=== PATIENT | female | born 1970 | race African-American/Black ===

== ENCOUNTER 2016-10-02 18:00 | Emergency (ER) | payer OTHER ==
[~2016-10-02] VITALS: Ht 160 cm; Wt 87.0 kg
[~2016-10-02 18:00] MED LIST: ABILIFY15 MG PO; AMBIEN10 M1 PO; AMOXICILLIN500 M1 PO; ATARAX,VISTARIL25 MG PO; ATARAX,VISTARIL50 MG PO; BUSPAR10 MG PO; CATAPRES0.3 MG PO; CIPRO500 MG PO; CLONIDINE HCL0.1 MG PO; CLONIDINE HCL0.3 MG; CYCLOBENZAPRINE5 MG PO; Catapres PO; Cipro PO; DEBLITANE0.35 MG PO; EFFEXOR XR150 MG; EFFEXOR25 MG PO; EFFEXOR75 MG PO; ENDOCET 5-3251 EACH PO; Ecotrin PO; FEXOFENADINE H180 MG PO; HYOSCYAMINE0.375 MG PO; Habitrol,Nicoderm CQ TD; IBUPROFEN800 MG PO; INDOCIN25 MG PO; INVEGA1.5 MG PO; LATUDA40 MG; LATUDA40 MG PO; LISINOPRIL20 MG PO; LISINOPRIL40 MG PO; MACROBID100 MG PO; MOBIC15 MG PO; MOTRIN600 MG PO; MOTRIN800 MG PO; NOHOMEMEDS; NORCO 5/3251 TABLET PO; OMEPRAZOLE40 M1; OMEPRAZOLE40 M1 PO; OMEPRAZOLE40 MG PO; OXYCODONE-APAP1 EAC6 PO; PEPCID40 MG PO; PERCOCET 5/31 TABLET PO; PERCOCET 7.51 TABLET PO; PREDNISONE10 MG PO; PREDNISONE20 MG PO; PRILOSEC40 MG PO; PROTONIX40 MG PO; RANITIDINE HCL300 M1 PO; RANITIDINE HCL300 MG PO; RESTORIL30 MG PO; SOOTHING CARE28 GM TP; TEMAZEPAM30 MG PO; TOPAMAX100 MG; TOPAMAX50 MG PO; TOPIRAMATE100 MG PO; TRAZODONE HCL50 MG PO; TYLENOL REGULA325 MG PO; ULTRAM50 MG PO; VENLAFAXINE HC150 M1 PO; ZESTRIL,PRINIVI20 MG PO; Zestril,Prinivil PO
[2016-10-02 19:37] LABS: INFLUENZA A VIRAL ANTIGEN NEGATIVE; INFLUENZA B VIRAL ANTIGEN POSITIVE
[2016-10-02] MEDS ORDERED: AUGMENTIN875 MG PO (20:18)
[2016-10-02] MEDS ORDERED: MUCINEX D ER T1 EAC1 PO (20:19)
[2016-10-02 20:35] VITALS: BP 159/99
== END 2016-10-02 20:36 | disposition home or self-care (01) ==
LOC: EME 18:00
PROVIDERS: Physician Assistant
DX: J10.1 Influenza due to other identified influenza virus with other respiratory manifestations (principal); J32.9 Chronic sinusitis, unspecified; F17.200 Nicotine dependence, unspecified, uncomplicated
CPT/HCPCS: 87502; 99281; 99284

== ENCOUNTER 2016-12-27 17:09 | Observation (INO) | payer OTHER ==
[~2016-12-27] VITALS: Ht 162.6 cm; Wt 86.5 kg
[~2016-12-27 17:09] MED LIST changes: +AUGMENTIN875 MG PO; +MUCINEX D ER T1 EAC1 PO
[2016-12-27 18:33] LABS: MCH 30.1 PG (29.0-34.0); MCV 91.1 FL (83-99); MEAN PLAT.VOLUME 8.7 uM^3 (9.5-12.4); PLATELET COUNT 247 K/uL (156-360); RBC DIS.WIDTH-CV 12.7 % (11.8-14.6); RBC DIS.WIDTH-SD 42.3 % (39-53); RED BLOOD COUNT 4.72 M/uL (3.80-5.20); WHITE BLOOD COUNT 8.4 K/uL (4.1-10.2)
[2016-12-27 18:42] LABS: CHLORIDE 104 mEq/L (99-109); POTASSIUM 3.8 mEq/L (3.7-5.4); SODIUM 140 mEq/L (136-147)
[2016-12-27 18:44] LABS: GLUCOSE 82 mg/dL (70-99)
[2016-12-27 18:46] LABS: ANION GAP 10 MEQ/L (2-14); D-DIMER ELISA 0.64 mg/L FEU (< 0.57)
[2016-12-27 18:48] LABS: GFR ESTIMATE (CALCULATED) > 59 mL/min/
[2016-12-27 18:49] LABS: UREA NITROGEN (BUN) 9 mg/dL (9-23)
[2016-12-27 18:57] LABS: TROP-I INTERPRETATION NEGATIVE; TROPONIN-I < 0.01 ng/mL (0.0-0.30)
[2016-12-27] MEDS ORDERED: PERCOCET 10/1 TABLET PO (22:16)
[2016-12-27] MEDS ORDERED: PRILOSEC20 MG PO (22:17)
[2016-12-27] MEDS ORDERED: MORPHINE SULFAT15 M1 PO (22:17)
[2016-12-28 02:14] LABS: TOTAL BILIRUBIN 0.4 mg/dL (0.0-1.0)
[2016-12-28 02:15] LABS: ALKALINE PHOSPHATASE 104 IU/L (3-129)
[2016-12-28 02:16] LABS: TROP-I INTERPRETATION NEGATIVE; TROPONIN-I < 0.01 ng/mL (0.0-0.30)
[2016-12-28 02:18] LABS: DIRECT BILIRUBIN 0.2 mg/dL (0.0-0.3)
[2016-12-28 02:19] LABS: LIPASE 17 U/L (1.0-51.0)
[2016-12-28 02:44] VITALS: BP 172/83
[2016-12-28 07:07] VITALS: BP 156/93
[2016-12-28 09:39] LABS: TROP-I INTERPRETATION NEGATIVE; TROPONIN-I < 0.01 ng/mL (0.0-0.30)
[2016-12-28] MEDS ORDERED: VENTOLIN HFA18 GM IH (09:55)
[2016-12-28] MEDS ORDERED: AMOX TR-K CLV1 EAC4 PO (09:55)
[2016-12-28] MEDS ORDERED: ASPIR-LOW81 MG PO (09:55)
[2016-12-28] MEDS ORDERED: PRAVACHOL40 MG PO (09:56)
== END 2016-12-28 11:01 | disposition home or self-care (01) ==
LOC: EME 17:09 → EDOF 12-28 00:31 → 5WEST 12-28 02:08
PROVIDERS: Hospitalist
DX: J32.9 Chronic sinusitis, unspecified (principal); J40 Bronchitis, not specified as acute or chronic; J45.909 Unspecified asthma, uncomplicated; R07.81 Pleurodynia; E11.9 Type 2 diabetes mellitus without complications
CPT/HCPCS: 71020; 71275; 80048; 80076; 80306 90; 83690; 84484; 85027; 85379; 93005; 99281; 99285; G0378; J2270

== ENCOUNTER 2017-03-04 13:19 | Emergency (ER) | payer OTHER ==
[~2017-03-04] VITALS: Ht 162.6 cm; Wt 84.0 kg
[~2017-03-04 13:19] MED LIST changes: +AMOX TR-K CLV1 EAC4 PO; +ASPIR-LOW81 MG PO; +MORPHINE SULFAT15 M1 PO; +PERCOCET 10/1 TABLET PO; +PRAVACHOL40 MG PO; +PRILOSEC20 MG PO; +VENTOLIN HFA18 GM IH
[2017-03-04 14:06] VITALS: BP 132/92
== END 2017-03-04 16:34 | disposition home or self-care (01) ==
LOC: EME 13:19
DX: M25.561 Pain in right knee (principal)
CPT/HCPCS: 99281; 99283

== ENCOUNTER 2017-04-10 12:02 | Emergency (ER) | payer OTHER ==
[~2017-04-10] VITALS: Ht 162.6 cm; Wt 101.2 kg
[2017-04-10 15:35] VITALS: BP 119/78
== END 2017-04-10 15:38 | disposition home or self-care (01) ==
LOC: EME 12:02
DX: Z47.1 Aftercare following joint replacement surgery (principal); Z96.651 Presence of right artificial knee joint; I10 Essential (primary) hypertension; Z85.41 Personal history of malignant neoplasm of cervix uteri; F17.200 Nicotine dependence, unspecified, uncomplicated
CPT/HCPCS: 99281; 99285

== ENCOUNTER 2017-05-28 02:32 | Emergency (ER) | payer OTHER ==
[~2017-05-28] VITALS: Ht 160 cm; Wt 101.2 kg
[2017-05-28 04:24] VITALS: BP 129/86
== END 2017-05-28 04:25 | disposition home or self-care (01) ==
LOC: EME 02:32 → EXP 02:32
DX: M25.561 Pain in right knee (principal); G89.29 Other chronic pain; I10 Essential (primary) hypertension; E11.9 Type 2 diabetes mellitus without complications; K21.9 Gastro-esophageal reflux disease without esophagitis; F41.9 Anxiety disorder, unspecified; F32.9 Major depressive disorder, single episode, unspecified; F31.9 Bipolar disorder, unspecified; I25.2 Old myocardial infarction; Z85.41 Personal history of malignant neoplasm of cervix uteri; F17.200 Nicotine dependence, unspecified, uncomplicated
CPT/HCPCS: 99281; 99284

== ENCOUNTER 2017-07-16 19:31 | Emergency (ER) | payer OTHER ==
[~2017-07-16] VITALS: Ht 162.6 cm; Wt 70.0 kg
[2017-07-16] MEDS ORDERED: PERCOCET 5/31 TABLET PO (20:34)
[2017-07-16 20:45] VITALS: BP 128/102
[2017-07-16] MEDS ORDERED: ZOFRAN4 MG PO (21:27)
[2017-07-17] MEDS ORDERED: BENTYL20 MG PO (13:23)
== END 2017-07-16 21:27 | disposition home or self-care (01) ==
LOC: EME 19:31
DX: G89.18 Other acute postprocedural pain (principal); M25.561 Pain in right knee; R51 Headache; R11.2 Nausea with vomiting, unspecified; Z98.890 Other specified postprocedural states; Z96.651 Presence of right artificial knee joint; I10 Essential (primary) hypertension; Z79.82 Long term (current) use of aspirin; Z79.891 Long term (current) use of opiate analgesic; Z85.41 Personal history of malignant neoplasm of cervix uteri; F17.200 Nicotine dependence, unspecified, uncomplicated
CPT/HCPCS: 80053; 83690; 84702; 85027; 99281; 99284

== ENCOUNTER 2017-07-16 21:43 | Emergency (ER) | payer OTHER ==
[~2017-07-16] VITALS: Ht 162.6 cm; Wt 70.0 kg
[~2017-07-16 21:43] MED LIST changes: +ZOFRAN4 MG PO
[2017-07-16 23:24] LABS: HEMATOCRIT 30.4 % (36.0-46.0); HEMOGLOBIN 9.7 G/DL (11.9-15.5); MCH 25.5 PG (29.0-34.0); MCHC 31.9 G/DL (30.0-36.0); PLATELET COUNT 316 K/uL (156-360); RBC DIS.WIDTH-CV 13.4 % (11.8-14.6); RBC DIS.WIDTH-SD 39.3 % (39-53); WHITE BLOOD COUNT 12.4 K/uL (4.1-10.2)
[2017-07-16 23:39] LABS: ALBUMIN 4.3 g/dL (3.2-4.8)
[2017-07-16 23:40] LABS: CHLORIDE 107 mEq/L (99-109); POTASSIUM 3.6 mEq/L (3.7-5.4); SODIUM 141 mEq/L (136-147)
[2017-07-16 23:42] LABS: GLUCOSE 157 mg/dL (70-99); TOTAL PROTEIN 7.9 g/dL (6.4-8.3)
[2017-07-16 23:44] LABS: TOTAL BILIRUBIN 0.3 mg/dL (0.0-1.0)
[2017-07-16 23:45] LABS: ALKALINE PHOSPHATASE 88 IU/L (3-129)
[2017-07-16 23:46] LABS: CREATININE 0.7 mg/dL (0.6-1.3); GFR ESTIMATE (CALCULATED) > 59 mL/min/
[2017-07-16 23:47] LABS: AST (GOT) 15 IU/L (2-34); UREA NITROGEN (BUN) 12 mg/dL (9-23)
[2017-07-16 23:48] LABS: ALT (GPT) 16 IU/L (3-49)
[2017-07-16 23:49] LABS: LIPASE 4 U/L (1.0-51.0)
[2017-07-16 23:56] LABS: QUANTITATIVE HCG < 4.0 MIU/ML
[2017-07-17 01:59] VITALS: BP 138/78
[2017-07-17] MEDS ORDERED: BENTYL20 MG PO (13:23)
== END 2017-07-17 02:17 | disposition home or self-care (01) ==
LOC: EME 21:43 → EXP 21:43
PROVIDERS: Emergency Medicine
DX: R11.2 Nausea with vomiting, unspecified (principal); R19.7 Diarrhea, unspecified; E86.0 Dehydration; D64.9 Anemia, unspecified; Z85.41 Personal history of malignant neoplasm of cervix uteri; Z90.49 Acquired absence of other specified parts of digestive tract; I10 Essential (primary) hypertension; Z98.890 Other specified postprocedural states; Z96.651 Presence of right artificial knee joint; Z79.82 Long term (current) use of aspirin; F17.200 Nicotine dependence, unspecified, uncomplicated
CPT/HCPCS: 74176; 80053; 83690; 84702; 85027; 99281; 99285; J2270; J2405; J7030

== ENCOUNTER 2017-07-17 10:56 | Emergency (ER) | payer OTHER ==
[~2017-07-17] VITALS: Ht 160 cm; Wt 76.2 kg
[2017-07-17 12:03] LABS: BASOPHIL (%) 0.1 % (0-1); EOSINOPHIL (%) 0 % (0-5); HEMATOCRIT 27.5 % (36.0-46.0); HEMOGLOBIN 8.6 G/DL (11.9-15.5); IMMATURE GRANULOCYTE (%) 0.8 % (0.0-0.7); LYMPHOCYTE (%) 9.6 % (15-42); LYMPHOCYTE COUNT 1.4 K/uL (1.0-2.8); MCH 25.3 PG (29.0-34.0); MCHC 31.3 G/DL (30.0-36.0); MCV 80.9 FL (83-99); MONOCYTE (%) 4.3 % (3-12); MONOCYTE COUNT 0.6 K/uL (0-0.8); NEUTROPHIL (%) 85.2 % (45-76); NEUTROPHIL COUNT 12.2 K/uL (1.8-6.4); PLATELET COUNT 284 K/uL (156-360); RBC DIS.WIDTH-CV 13.7 % (11.8-14.6); RBC DIS.WIDTH-SD 40.1 % (39-53); WHITE BLOOD COUNT 14.3 K/uL (4.1-10.2)
[2017-07-17 12:08] LABS: ALBUMIN 3.8 g/dL (3.2-4.8); CHLORIDE 109 mEq/L (99-109); POTASSIUM 3.6 mEq/L (3.7-5.4); SODIUM 139 mEq/L (136-147)
[2017-07-17 12:10] LABS: GLUCOSE 131 mg/dL (70-99)
[2017-07-17 12:14] LABS: ALKALINE PHOSPHATASE 77 IU/L (3-129); CREATININE 0.7 mg/dL (0.6-1.3); GFR ESTIMATE (CALCULATED) > 59 mL/min/
[2017-07-17 12:15] LABS: UREA NITROGEN (BUN) 10 mg/dL (9-23)
[2017-07-17 12:16] LABS: AST (GOT) 12 IU/L (2-34)
[2017-07-17 12:17] LABS: ALT (GPT) 13 IU/L (3-49); LIPASE 3 U/L (1.0-51.0)
[2017-07-17 12:18] LABS: TOTAL BILIRUBIN 0.2 mg/dL (0.0-1.0)
[2017-07-17] MEDS ORDERED: BENTYL20 MG PO (13:23)
[2017-07-17 14:10] VITALS: BP 103/59
== END 2017-07-17 14:10 | disposition home or self-care (01) ==
LOC: EME 10:56
PROVIDERS: Emergency Medicine
DX: R10.9 Unspecified abdominal pain (principal); R11.2 Nausea with vomiting, unspecified; D64.9 Anemia, unspecified; K21.9 Gastro-esophageal reflux disease without esophagitis; I10 Essential (primary) hypertension; E11.9 Type 2 diabetes mellitus without complications; I25.2 Old myocardial infarction; F41.9 Anxiety disorder, unspecified; F32.9 Major depressive disorder, single episode, unspecified; F31.9 Bipolar disorder, unspecified; F17.200 Nicotine dependence, unspecified, uncomplicated; Z90.49 Acquired absence of other specified parts of digestive tract; Z85.41 Personal history of malignant neoplasm of cervix uteri
CPT/HCPCS: 80053; 83690; 85025; 99281; 99283; J1885; J2270; J2405; J7030

== ENCOUNTER 2017-07-26 02:08 | Emergency (ER) | payer OTHER ==
[~2017-07-26] VITALS: Ht 162.6 cm; Wt 77.2 kg
[~2017-07-26 02:08] MED LIST changes: +BENTYL20 MG PO
[2017-07-26 03:19] VITALS: BP 109/68
== END 2017-07-26 03:25 | disposition home or self-care (01) ==
LOC: EME → EDBD 02:08 → EME 03:25
DX: M25.561 Pain in right knee (principal); F11.23 Opioid dependence with withdrawal; K21.9 Gastro-esophageal reflux disease without esophagitis; I10 Essential (primary) hypertension; E11.9 Type 2 diabetes mellitus without complications; I25.2 Old myocardial infarction; F41.9 Anxiety disorder, unspecified; F32.9 Major depressive disorder, single episode, unspecified; F17.200 Nicotine dependence, unspecified, uncomplicated; Z96.651 Presence of right artificial knee joint; Z85.41 Personal history of malignant neoplasm of cervix uteri
CPT/HCPCS: 99281; 99284; J2270

== ENCOUNTER 2017-08-15 12:39 | Emergency (ER) | payer OTHER ==
[~2017-08-15] VITALS: Ht 162.6 cm; Wt 73.2 kg
[2017-08-15] MEDS ORDERED: DIAZEPAM5 MG PO (13:48)
[2017-08-15] MEDS ORDERED: MORPHINE SULFAT15 M1 PO (13:49)
[2017-08-15] MEDS ORDERED: [UNRECOGNIZED DRUG - OTHER] BOTH NARES (13:51)
[2017-08-15] MEDS ORDERED: EYE ITCH RELIEF5 ML BOTH EYES (13:52)
[2017-08-15 15:42] VITALS: BP 111/98
== END 2017-08-15 15:46 | disposition home or self-care (01) ==
LOC: EME 12:39
DX: R22.41 Localized swelling, mass and lump, right lower limb (principal); M25.561 Pain in right knee; Z96.651 Presence of right artificial knee joint; E11.9 Type 2 diabetes mellitus without complications; I10 Essential (primary) hypertension; F17.200 Nicotine dependence, unspecified, uncomplicated; I25.2 Old myocardial infarction; F32.9 Major depressive disorder, single episode, unspecified; K21.9 Gastro-esophageal reflux disease without esophagitis; F41.9 Anxiety disorder, unspecified; Z85.41 Personal history of malignant neoplasm of cervix uteri
CPT/HCPCS: 73564; 93971; 99281; 99283